=== PATIENT | female | born 1985 | race Caucasian/White ===

== ENCOUNTER 2023-11-02 14:59 | Outpatient (CLI) | payer OTHER, SELFPAY | END 2023-11-02 15:00 | disposition home or self-care (01) | LOC: NFLDREF 11-10 12:38 | PROVIDERS: Visit Provider Physician Assistant | DX: N34.3 Urethral syndrome, unspecified (principal); N39.0 Urinary tract infection, site not specified | CPT/HCPCS: 87086; 87186 ==